=== PATIENT | male | born 1955 | race Caucasian/White ===

== ENCOUNTER 2018-11-12 01:50 | Emergency (ER) | payer OTHER ==
[2018-11-12 02:06] VITALS: BP 146/83; PULSE 74; O2SAT 98
[2018-11-12 02:32] LABS: Amphetamine,Urine NEGATIVE (NEGATIVE); Barbiturate,Urine NEGATIVE (NEGATIVE); Benzodiazepine,Urine NEGATIVE (NEGATIVE); Cocaine,Urine NEGATIVE (NEGATIVE); Methadone,Urine NEGATIVE (NEGATIVE); Opiate,Urine NEGATIVE (NEGATIVE); PCP,Urine NEGATIVE (NEGATIVE); THC,Urine NEGATIVE (NEGATIVE)
--- NOTE | 2018-11-12 02:46 | ERPHSYRPT ---
- History of Present Illness Source: patient, police Exam Limitations: no limitations, clinical condition Patient Subjective Stated Complaint: law enforcement states they need chemical test and clearance for [facility] Triage Nursing Assessment: pt awake and alert. answers questions. pt ambulatory with slightly unsteady gait noted. respirations nonlabored with lungs cta. Physician History: Pt is a 63 y/o male that presented to the ER by police, for medical clearance. Pt was seen by police, driving his mopad and swirling all over the road. He was stopped and was found to be intoxicated. Per pt he had 7-8 beers today. Pt was brought to the ER for medical clearance prior to [facility]. Timing/Duration: today Associated Symptoms: denies symptoms Allergies/Adverse Reactions: No Known Drug Allergies Allergy (Unverified 09/23/15 12:14) Home Medications: Aspirin 81 gm Chew [Baby Aspirin 81 mg Chew] 81 mg PO DAILY 09/23/15 [ History] Cilostazol [Pletal] 0 mg PO DAILY 09/23/15 [History] Hydrocodone Bit/Acetaminophen [Hydrocodon-Acetaminophn 10-325] 1 each PO QID [History] Hx Tetanus, Diphtheria Vaccination/Date Given: No Hx Influenza Vaccination/Date Given: No Hx Pneumococcal Vaccination/Date Given: No Immunizations Up to Date: No - Review of Systems Constitutional: No Fever, No Chills Eyes: No Symptoms Ears, Nose, & Throat: No Symptoms Respiratory: No Cough, No Dyspnea Cardiac: No Chest Pain, No Edema, No Syncope Abdominal/Gastrointestinal: No Abdominal Pain, No Nausea, No Vomiting, No Diarrhea Genitourinary Symptoms: No Dysuria Musculoskeletal: No Back Pain, No Neck Pain Neurological: No Dizziness, No Focal Weakness, No Sensory Changes - Past Medical History Pertinent Past Medical History: Yes Neurological History: No Pertinent History ENT History: No Pertinent History Cardiac History: Peripheral Vascular Disease Respiratory History: No Pertinent History, COPD Endocrine Medical History: No Pertinent History Musculoskeletal History: Other GI Medical History: No Pertinent History History: No Pertinent History Psycho-Social History: No Pertinent History Male Reproductive Disorders: No Pertinent History Other Medical History: PT. IS A SMOKER. chronic pain - Past Surgical History Past Surgical History: Yes Neuro Surgical History: No Pertinent History Cardiac: No Pertinent History Respiratory: No Pertinent History Gastrointestinal: Hernia Repair Genitourinary: No Pertinent History Musculoskeletal: Amputation Male Surgical History: No Pertinent History Other Surgical History: left index finger amputation 1997 - Social History Smoking Status: Current every day smoker How long have you smoked: 40years Exposure to second hand smoke: Yes Drug Use: none Patient Lives Alone: Yes - Nursing Vital Signs Nursing Vital Signs: Initial Vital Signs Temperature 97.8 F 11/12/18 01:52 Pulse Rate 74 11/12/18 01:52 Respiratory Rate 18 11/12/18 01:52 Blood Pressure 146/83 11/12/18 01:52 O2 Sat by Pulse Oximetry 98 11/12/18 01:52 Pain Scale Pain Intensity 5 - Physical Exam General Appearance: no apparent distress, alert Eye Exam: PERRL/EOMI, eyes nml inspection Ears, Nose, Throat Exam: normal ENT inspection, TMs normal, pharynx normal, moist mucous membranes Neck Exam: normal inspection, non-tender, supple, full range of motion Respiratory Exam: normal breath sounds, lungs clear, No respiratory distress Cardiovascular Exam: regular rate/rhythm, normal heart sounds, normal peripheral pulses Gastrointestinal/Abdomen Exam: soft, normal bowel sounds, No tenderness, No mass Extremity Exam: normal inspection, normal range of motion, pelvis stable Neurologic Exam: alert, oriented x 3, cooperative, normal mood/affect, nml cerebellar function, nml station & gait, sensation nml, No motor deficits SpO2: 98 - Course Nursing assessment & vital signs reviewed: Yes Ordered Tests: Active Orders 24 hr Category Date Time Status Alcohol [ETHYL ALCOHOL] Stat Lab 11/12/18 02:10 Completed Urine Triage Profile Stat Lab 11/12/18 02:14 Completed Lab/Rad Data: Laboratory Results 11/12/18 11/12/18 Range/Units 02:14 02:10 Urine Opiates Level NEGATIVE (NEGATIVE) Ur Methadone NEGATIVE (NEGATIVE) Urine Barbiturates NEGATIVE (NEGATIVE) Ur Phencyclidine (PCP) NEGATIVE (NEGATIVE) Urine Amphetamine NEGATIVE (NEGATIVE) U Benzodiazepine Level NEGATIVE (NEGATIVE) Urine Cocaine NEGATIVE (NEGATIVE) Urine Marijuana (THC) NEGATIVE (NEGATIVE) Ethyl Alcohol 194 H (0-10) mg/dL - Progress Progress: unchanged Progress Note: 11/12/18 02:46 Pt had UDS that was negative for recreational drugs. Hia ETOH level was elevated. Pt was medically cleared to [facility]. - Departure Time of Disposition: 02:47 Departure Disposition: Intermediate/[facility] Clinical Impression: Alcohol intoxication Condition: Stable Critical Care Time: No Referrals: ODETTE DOVE [Primary Care Provider] - Additional Instructions: Pt should f/u with his PCP with release from [facility].
== END 2018-11-12 02:58 | disposition home or self-care (01) ==
LOC: ED 01:50
DX: M72.2 Plantar fascial fibromatosis (principal); Z02.89 Encounter for other administrative examinations; J44.9 Chronic obstructive pulmonary disease, unspecified; I73.9 Peripheral vascular disease, unspecified; Z79.899 Other long term (current) drug therapy
CPT/HCPCS: 36415; 80307; 99283; G0480

== ENCOUNTER 2022-05-08 19:23 | Emergency (ER) | payer MEDICARE ==
--- NOTE | 2022-05-08 19:35 | ERPHSYRPT ---
- History of Present Illness Time Seen by Provider: 05/08/22 19:35 Source: patient Exam Limitations: no limitations Physician History: This is a right handed 66-year-old white male who presents with a right index finger flap laceration that occurred prior to arrival when trying to cut wood. Patient's tetanus status is not up-to-date. Patient has hydrocodone at home that he uses chronically. Patient took 1 prior to arrival to emergency department. Patient has a history of arthritis as well as history of lung cancer. Occurred: just prior to arrival Method of Injury: other (Cutting wood) Quality: throbbing Severity of Pain-Max: mild (To moderate) Severity of Pain-Current: mild (To moderate) Extremities Pain Location: 2nd finger: right Modifying Factors: Improves With: nothing Associated Symptoms: none Allergies/Adverse Reactions: No Known Drug Allergies Allergy (Verified 05/08/22 19:29) Home Medications: Aspirin 81 gm Chew [Baby Aspirin 81 mg Chew] 81 mg PO DAILY 09/23/15 [History] Cilostazol [Pletal] 0 mg PO DAILY 09/23/15 [History] Hydrocodone/Acetaminophen [Hydrocodon-Acetaminophn 10-325] 1 each PO QID 09/23/15 [History] Hx Tetanus, Diphtheria Vaccination/Date Given: No Hx Influenza Vaccination/Date Given: No Hx Pneumococcal Vaccination/Date Given: No Travel Risk - International Travel Have you traveled outside of the country in past 3 weeks: No - Coronavirus Screening Are you exhibiting any of the following symptoms?: No Close contact with a COVID-19 positive Pt in past 14-21 Days: No - Review of Systems Constitutional: No Symptoms Eyes: No Symptoms Ears, Nose, & Throat: No Symptoms Respiratory: No Symptoms Cardiac: No Symptoms Abdominal/Gastrointestinal: No Symptoms Genitourinary Symptoms: No Symptoms Musculoskeletal: Injury (Right index finger) Skin: Other (Laceration fat pad distal right second digittip of finger) Neurological: No Symptoms Psychological: No Symptoms Endocrine: No Symptoms Hematologic/Lymphatic: No Symptoms Immunological/Allergic: No Symptoms All Other Systems: Reviewed and Negative - Past Medical History Pertinent Past Medical History: Yes Neurological History: No Pertinent History ENT History: No Pertinent History Cardiac History: Peripheral Vascular Disease Respiratory History: Lung Cancer Endocrine Medical History: No Pertinent History Musculoskeletal History: Fractures GI Medical History: No Pertinent History History: No Pertinent History Psycho-Social History: No Pertinent History Male Reproductive Disorders: No Pertinent History Other Medical History: Arthritis, Thyroid Disease, currently undergoing Immunotherapy for lung cancer - Past Surgical History Past Surgical History: Yes Neuro Surgical History: No Pertinent History Cardiac: No Pertinent History Respiratory: No Pertinent History Gastrointestinal: Hernia Repair Genitourinary: No Pertinent History Musculoskeletal: Amputation Male Surgical History: No Pertinent History Other Surgical History: left index finger amputation 1997 - Social History Smoking Status: Current every day smoker How long have you smoked: 40years Exposure to second hand smoke: Yes Drug Use: none Patient Lives Alone: Yes - Nursing Vital Signs Nursing Vital Signs: Initial Vital Signs Temperature 98.2 F 05/08/22 19:37 Pulse Rate 74 05/08/22 19:37 Respiratory Rate 18 05/08/22 19:37 Blood Pressure 129/59 05/08/22 19:37 O2 Sat by Pulse Oximetry 96 05/08/22 19:37 Pain Scale Pain Intensity 8 - Physical Exam General Appearance: no apparent distress, alert Eyes, Ears, Nose, Throat Exam: normal ENT inspection, moist mucous membranes Neck Exam: normal inspection, non-tender, supple, full range of motion Cardiovascular/Respiratory Exam: chest non-tender, no respiratory distress Abdominal Exam: non-tender Back Exam: normal inspection, normal range of motion, No CVA tenderness, No vertebral tenderness Shoulder Exam: normal inspection, non-tender, no evidence of injury, normal ROM Elbow/Forearm Exam: normal inspection, non-tender, no evidence of injury, normal ROM Wrist Exam: normal inspection, non-tender, no evidence of injury, normal ROM Hand Exam: normal ROM, laceration (Skin flap laceration right index finger palmar aspect hip with some maceration. No bony involvement. Patient is neurovascularly intact. No foreign body and no active bleeding present), soft tissue tenderness (Distal tip right index finger palmar aspect fat pad) Neuro/Tendon Exam: normal sensation, normal motor functions, normal tendon functions, responds to pain, no evidence tendon injury Mental Status Exam: alert, oriented x 3, cooperative Skin Exam: normal color, warm, dry, laceration (See above right second digit) SpO2 Interpretation: normal O2 Delivery: Room Air Procedures - Laceration/Wound Repair Right Distal Volar Finger Time of Procedure: 20:00 Wound Location: Right, hand (Second digit tip of finger palmar aspect) Wound Length (cm): 1 Wound's Depth, Shape: superficial, flap, stellate Wound Explored: clean (No foreign body noted. Examination was performed in a bloodless field to the base) Irrigated: Yes Hibiclens Prep: Yes Anesthesia: 1% Lidocaine Volume Anesthetic (ccs): 2 Wound Repaired With: sutures Suture Size/Type: 4-0, prolene Number of Sutures: 4 (Sutures were placed to tack the flap down) Layer Closure?: No Sterile Dressing Applied?: Yes Progress: 05/08/22 20:15 Bacitracin ointment, nonstick gauze and pressure dressing applied. Ordered Tests: Medication Summary Discontinued Medications Generic Name Dose Route Start Last Admin Trade Name Freq PRN Reason Stop Dose Admin Bacitracin Zinc Confirm 05/08/22 20:06 Bacitracin Packet 1 Each Pckt Administered 05/08/22 20:07 Dose 1 each .ROUTE .STK-MED ONE Cephalexin HCl 500 mg 05/08/22 20:06 Cephalexin Mh500 Mg Capsule PO 05/08/22 20:07 STAT ONE - Progress Progress: improved Progress Note: 05/08/22 20:16 There was no bony involvement. I did not order an x-ray because I do not feel it is necessary. The goal is merely to tack the flap down not to make a watertight closure. This was discussed several times with the patient and his spouse. They agree with this plan. Counseled pt/family regarding: diagnosis, need for follow-up - Departure Departure Disposition: Home Clinical Impression: Finger laceration Condition: Stable Critical Care Time: No Referrals: ODETTE DOVE [Primary Care Provider] - Follow up/PCP as directed Additional Instructions: Keep current bandage in place until the morning of 05/10/2022. At that time, you may remove the dressing and wash the site with soap and water. Make sure you rinse well, dry the area well then apply antibiotic ointment of choice daily thereafter. Each time, cover the repeat parasite with a thin layer of antibiotic ointment and nonstick gauze. Suture removal in 10 days. Take your antibiotic as prescribed. Continue your own hydrocodone at home. Prescriptions: Cephalexin Mh 500 mg [Keflex 500 mg] 500 mg PO TID #21 cap
[2022-05-08 19:38] VITALS: BP 129/59; PULSE 74; O2SAT 96
[2022-05-08] MEDS ORDERED: BACIGUENT PACKET ONE (20:06)
[2022-05-08] MEDS ORDERED: KEFLEX 500 MG PO ONE (20:06)
[2022-05-08] MEDS ORDERED: Adacel Vial IM ONE ×2 (20:09→20:13)
[2022-05-08] MEDS ORDERED: KEFLEX 500 MG ONE (20:14)
== END 2022-05-08 20:33 | disposition home or self-care (01) ==
LOC: ED 19:23
DX: S61.210A Laceration without foreign body of right index finger without damage to nail, initial encounter (principal); W45.8XXA Other foreign body or object entering through skin, initial encounter; Z72.0 Tobacco use; Z79.891 Long term (current) use of opiate analgesic; Z79.899 Other long term (current) drug therapy
CPT/HCPCS: 12001; 90471; 90715; 99282; A9270-GY

== ENCOUNTER 2023-01-15 08:45 | Emergency (ER) | payer MEDICARE ==
[2023-01-15] MEDS ORDERED: Sodium Chloride 0.9% 1000 ML 1,000 ML IV STA (09:11)
[2023-01-15] MEDS ORDERED: PROTONIX 40 MG IV IV ONE ×2 (09:11→09:33)
[2023-01-15] MEDS ORDERED: Zofran 4 MG/2 ML VIAL IV ONE (09:11)
[2023-01-15 09:16] VITALS: PULSE 66
[2023-01-15] MEDS ORDERED: Zofran 4 MG/2 ML VIAL ONE (09:33)
[2023-01-15] MEDS ORDERED: Sodium Chloride 0.9% 1000 ML 1,000 ML ONE (09:34)
[2023-01-15 09:51] LABS: Absolute Neutrophil Ct (ANC) 6.53 x10^3/uL (1.4-6.9); BASOPHIL % 0.1 % (0.0-0.4); Basophil (Absolute #) 0.01 x10^3/uL (0-0.4); Eosinophil % 0.3 % (0.00-5.0); Eosinophil (Absolute #) 0.02 x10^3/uL (0-0.5); Hematocrit 37.7 % (42-50); Hemoglobin 11.7 g/dL (12.5-18.0); IMMATURE GRAN # 0.04 x10^3u/L (0.00-0.03); IMMATURE GRAN % 0.5 % (0.00-0.4); Lymphocyte (Absolute #) 0.22 x10^3/uL (1.0-4.6); Mean Corpuscular Hemoglobin 25.4 pg (26-32); Mean Platelet Volume 8.5 fL (7.5-11.0); Monocyte (Absolute #) 0.58 x10^3/uL (0.0-1.3); Monocytes % 7.8 % (0.0-12.0); Neutrophil % 88.3 % (36.0-66.0); Platelet Count 425 x10^3/uL (150-450); Red Cell Distribution Width 17.3 % (11.5-14.0); White Blood Count 7.4 x10^3/uL (4.0-10.5)
[2023-01-15 10:05] LABS: ALBUMIN 3.4 g/dL (3.5-5.0); ALKALINE PHOSPHATASE 70 U/L (38-126); ANION GAP 12.5 MEQ/L (5-15); BLOOD UREA NITROGEN 14 mg/dL (9-20); CHLORIDE 98 mmol/L (98-107); Carbon Dioxide 29 mmol/L (22-30); Creatinine 1 0.71 mg/dL (0.66-1.25); EST GLOMERULAR FILTRATION RATE > 60.0 ML/MIN; Glucose 121 mg/dL (74-106); LIPASE 28 U/L (23-300); Potassium 3.5 mmol/L (3.5-5.1); SGOT/AST 31 U/L (17-59); SGPT/ALT 35 U/L (0-50); SODIUM 136 mmol/L (137-145); Total Protein 6.6 g/dL (6.3-8.2)
[2023-01-15 11:58] LABS: Slide Review 1 YES
[2023-01-15 12:30] VITALS: BP 168/91; O2SAT 97
--- NOTE | 2023-01-15 12:43 | XRAY ---
CLINICAL HISTORY:Upper abdominal pain/vomiting. History of left lung small cell carcinoma; COMPARISON:None; TECHNIQUES:CT scan of the abdomen and pelvis was performed with IV contrast. 80 ml of Inj. Isovue (370 mg/ 100ml) was administered as an intravenous contrast agent. Bowel loops are not opacified by prior administration of oral contrast. Coronal and sagittal reconstructive images were also obtained; FINDINGS: Moderate hydropneumothorax is seen in the left hemithorax. Shift of mediastinum is seen towards the left side. Interlobular septal thickening is seen in the visualized part of left lower lobe. Small ill-defined nodular density is seen in the left lower lobe in the para mediastinal location. Multiple patchy ground glass infiltrates are seen in the visualized lower lobe of the right lung, along with nodular septal thickening. Minimal pericardial effusio is seen. Paucity of intra-abdominal fat limits intrinsic soft tissue contrast. The liver is normal in size. No focal or diffuse parenchymal abnormality. The portal vein, intrahepatic biliary radicals and the bile ducts are normal. The spleen, pancreas, adrenal glands are unremarkable. The kidneys are unremarkable. They are normal in size and shape. No calculi or hydronephrosis. The gallbladder is normal. No pericholecystic collection or radio dense calculi in the gall bladder. Colonic diverticulosis is seen predominantly involving the sigmoid colon. No evidence of diverticulitis is noted. The ascending colon, the transverse colon, the descending colon, visualized small bowel loops are unremarkable. There is no evidence of significant enlargement of the mesenteric or retroperitoneal lymph nodes. Atherosclerotic vascular calcifications are noted severely involving the iliac vessels. The urinary bladder is unremarkable. The rectosigmoid colon is unremarkable. The prostate is unremarkable. The pelvic vasculature is unremarkable. No evidence of pelvic lymphadenopathy. The osseous structures in the pelvis, lower rib cage and lumbar spine show No lytic or sclerotic bone lesions. Fracture is seen in the pars-intraarticular of L5 on right side with no evidence of spondylolisthesis. IMPRESSION: 1. Moderate hydropneumothorax is seen in the left hemithorax with shift of mediastinum towards the left side. 2. Interlobular septal thickening seen in the visualized part of the left lower lobe. 3. Small ill-defined nodular density is seen in the left lower lobe in the para-mediastinal location. 4. Multiple patchy infiltrates are seen in the visualized lower lobe of the right lung, clinical correlation and workup suggested. 5. Minimal pericardial effusion. 6. Suggested contrast-enhanced CT Chest for further evaluation. 7. Paucity of intra abdominal fat limits intrinsic soft tissue contrast. 8. Colonic diverticulosis noted, bowel gas pattern is non-specific and non-obstructive. The [facility] office was called at [phone] at 11:32 AM GRAB OPERATOR, 01/15/2023 and the results are verbally communicated with Corey Marks. Electronically Signed by: Celina Powell MD. (01/15/2023 11:38:15 GRAB OPERATOR)
--- NOTE | 2023-01-15 13:19 | ERPHSYRPT ---
- History of Present Illness Time Seen by Provider: 01/15/23 09:11 Historian: patient Exam Limitations: no limitations Patient Subjective Stated Complaint: pt has been vomiting since last week and he went to [facility] yesterday and they just gave him some fluids, pt is stage 4 lung cancer and he is taking chemo Triage Nursing Assessment: Pt brought to the ER by his friend, hypertensive, denies any new pain from being sick but does have chronic pain, pt unable to keep anything down, for the pas 1.5 weeks, pulses normal, weak, lethargic, A&O X3 Physician History: 67 years old male with history of stage IV lung cancer finished radiation therapy, chemo and currently on immunotherapy, had pericardial effusion and hydr othorax needing drainage almost [address] [facility] by Dr. Domingo presented in the ER with worsening nausea vomiting and epigastric discomfort. Patient reports he is not able to hold much down. He was seen yesterday at cancer [facility] and was given fluids. Denies any fever or chills. Patient denies having any increased shortness of breath than what he has at his baseline. Does report having some epigastric discomfort and pain and chronic back pain which is worse than usual as well. Patient feels weak fatigued tired and dehydrated with no energy. Timing/Duration: week(s), gradual onset, worse Activities at Onset: rest Quality: aching Abdominal Pain Onset Location: generalized abdomen Pain Radiation: no radiation Severity of Pain-Max: moderate Severity of Pain-Current: mild Modifying Factors: Improves With: nothing Associated Symptoms: back, nausea, vomiting Previous symptoms: same symptoms as today Allergies/Adverse Reactions: No Known Drug Allergies Allergy (Verified 01/15/23 09:16) Home Medications: Aspirin 81 gm Chew [Baby Aspirin 81 mg Chew] 81 mg PO DAILY 09/23/15 [History] Cilostazol [Pletal] 0 mg PO DAILY 09/23/15 [History] Hydrocodone/Acetaminophen [Hydrocodon-Acetaminophn 10-325] 1 each PO QID 09/23/15 [History] Hx Tetanus, Diphtheria Vaccination/Date Given: No Hx Influenza Vaccination/Date Given: No Hx Pneumococcal Vaccination/Date Given: No Travel Risk - International Travel Have you traveled outside of the country in past 3 weeks: No - Coronavirus Screening Are you exhibiting any of the following symptoms?: No Close contact with a COVID-19 positive Pt in past 14-21 Days: No - Vaccine Status Have you recieved a Covid-19 vaccination: Yes Paralegal Secretary: Pfizer - Vaccination Dates Date of 2cond Vaccination (if applicable): 2020 - Review of Systems Constitutional: Fatigue, Weakness Eyes: No Symptoms Ears, Nose, & Throat: No Symptoms Respiratory: Dyspnea Cardiac: No Symptoms Abdominal/Gastrointestinal: Abdominal Pain, Nausea, Vomiting Genitourinary Symptoms: No Symptoms Musculoskeletal: Back Pain Skin: No Symptoms Neurological: No Symptoms Psychological: No Symptoms Endocrine: No Symptoms Hematologic/Lymphatic: No Symptoms - Past Medical History Pertinent Past Medical History: Yes Neurological History: No Pertinent History ENT History: No Pertinent History Cardiac History: Peripheral Vascular Disease Respiratory History: Lung Cancer Endocrine Medical History: No Pertinent History Musculoskeletal History: Fractures GI Medical History: No Pertinent History History: No Pertinent History Psycho-Social History: No Pertinent History Male Reproductive Disorders: No Pertinent History Other Medical History: Arthritis, Thyroid Disease, currently undergoing Immun otherapy for lung cancer - Past Surgical History Past Surgical History: Yes Neuro Surgical History: No Pertinent History Cardiac: No Pertinent History Respiratory: No Pertinent History Gastrointestinal: Hernia Repair Genitourinary: No Pertinent History Musculoskeletal: Amputation Male Surgical History: No Pertinent History Other Surgical History: left index finger amputation 1997 - Social History Smoking Status: Current every day smoker How long have you smoked: 40years Exposure to second hand smoke: Yes Drug Use: none Patient Lives Alone: No - Nursing Vital Signs Nursing Vital Signs: Initial Vital Signs Temperature 97.6 F 01/15/23 08:59 Pulse Rate 66 01/15/23 08:59 Blood Pressure 150/92 01/15/23 08:59 O2 Sat by Pulse Oximetry 96 01/15/23 08:59 Pain Scale Pain Intensity 0 - Physical Exam General Appearance: no apparent distress, alert Eye Exam: PERRL/EOMI, eyes nml inspection Ears, Nose, Throat Exam: normal ENT inspection, pharynx normal Neck Exam: normal inspection, non-tender, supple, full range of motion Respiratory Exam: diminished breath sounds, crackles/rales, wheezing Cardiovascular Exam: regular rate/rhythm, normal heart sounds Gastrointestinal/Abdomen Exam: soft, normal bowel sounds, tenderness (Mild tenderness in epigastric area with no guarding or rebound) Extremity Exam: normal inspection, normal range of motion Neurologic Exam: alert, oriented x 3, cooperative Skin Exam: normal color SpO2 Interpretation: normal SpO2: 97 O2 Delivery: Room Air Ordered Tests: Active Orders 24 hr Category Date Time Status IV Insertion STAT Care 01/15/23 09:11 Active NPO (ED) STAT Care 01/15/23 09:11 Active ABDOMEN AND PELVIS W CONTRAST [CT] Stat Exams 01/15/23 09:11 Completed CBC W DIFF Stat Lab 01/15/23 09:11 Completed CMP Stat Lab 01/15/23 09:45 Completed LIPASE Stat Lab 01/15/23 09:45 Completed Lactic Acid Stat Lab 01/15/23 09:11 Completed TROPONIN Q4H Lab 01/15/23 09:45 Completed TROPONIN Q4H Lab 01/15/23 13:15 Ordered TROPONIN Q4H Lab 01/15/23 17:15 Ordered UA W/RFX UR CULTURE Stat Lab 01/15/23 12:29 Ordered Medication Summary Discontinued Medications Generic Name Dose Route Start Last Admin Trade Name Freq PRN Reason Stop Dose Admin Sodium Chloride 1,000 mls @ 999 mls/hr 01/15/23 09:11 01/15/23 11:10 Sodium Chloride 0.9% 1000 Ml IV 01/15/23 10:11 Infused .Q1H1M STA Infusion Sodium Chloride Confirm 01/15/23 09:34 Sodium Chloride 0.9% 1000 Ml Administered 01/15/23 09:35 Dose 1,000 mls @ ud .ROUTE .STK-MED ONE Ondansetron HCl 4 mg 01/15/23 09:11 01/15/23 09:36 Ondansetron Hcl 4 Mg/2 Ml Vial IV 01/15/23 09:12 4 mg STAT ONE Administration Ondansetron HCl Confirm 01/15/23 09:33 Ondansetron Hcl 4 Mg/2 Ml Vial Administered 01/15/23 09:34 Dose 4 mg .ROUTE .STK-MED ONE Pantoprazole Sodium 40 mg 01/15/23 09:11 01/15/23 09:37 Pantoprazole 40 Mg Vial IV 01/15/23 09:12 40 mg STAT ONE Administration Pantoprazole Sodium Confirm 01/15/23 09:33 Pantoprazole 40 Mg Vial Administered 01/15/23 09:34 Dose 40 mg IV .STK-MED ONE Lab/Rad Data: Laboratory Result Diagrams 01/15/23 09:11 01/15/23 09:45 Laboratory Results 01/15/23 01/15/23 01/15/23 Range/Units 09:45 09:45 09:11 WBC (4.0-10.5) x10^3/uL RBC (4.1-5.6) x10^6/uL Hgb (12.5-18.0) g/dL Hct (42-50) % MCV (78-100) fL MCH (26-32) pg MCHC (32-36) g/dL RDW (11.5-14.0) % Plt Count (150-450) x10^3/uL MPV (7.5-11.0) fL Gran % (36.0-66.0) % Immature Gran % (Auto) (0.00-0.4) % Nucleat RBC Rel Count (0.00-0.1) % Eos # (Auto) (0-0.5) x10^3/uL Immature Gran # (Auto) (0.00-0.03) x10^3u/L Absolute Lymphs (auto) (1.0-4.6) x10^3/uL Absolute Monos (auto) (0.0-1.3) x10^3/uL Absolute Nucleated RBC (0.00-0.01) x10^3u/L Lymphocytes % (24.0-44.0) % Monocytes % (0.0-12.0) % Eosinophils % (0.00-5.0) % Basophils % (0.0-0.4) % Absolute Granulocytes (1.4-6.9) x10^3/uL Basophils # (0-0.4) x10^3/uL Sodium 136 L (137-145) mmol/L Potassium 3.5 (3.5-5.1) mmol/L Chloride 98 (98-107) mmol/L Carbon Dioxide 29 (22-30) mmol/L Anion Gap 12.5 (5-15) MEQ/L BUN 14 (9-20) mg/dL Creatinine 0.71 (0.66-1.25) mg/dL Estimated GFR > 60.0 ML/MIN Glucose 121 H (74-106) mg/dL Lactic Acid 0.9 (0.4-2.0) Calcium 9.0 (8.4-10.2) mg/dL Total Bilirubin 0.60 (0.2-1.3) mg/dL AST 31 (17-59) U/L ALT 35 (0-50) U/L Alkaline Phosphatase 70 (38-126) U/L Troponin I < 0.012 (0.000-0.034) ng/mL Serum Total Protein 6.6 (6.3-8.2) g/dL Albumin 3.4 L (3.5-5.0) g/dL Lipase 28 (23-300) U/L Slides for Path Review 01/15/23 Range/Units 09:11 WBC 7.4 (4.0-10.5) x10^3/uL RBC 4.60 (4.1-5.6) x10^6/uL Hgb 11.7 L (12.5-18.0) g/dL Hct 37.7 L (42-50) % MCV 82.0 (78-100) fL MCH 25.4 L (26-32) pg MCHC 31.0 L (32-36) g/dL RDW 17.3 H (11.5-14.0) % Plt Count 425 (150-450) x10^3/uL MPV 8.5 (7.5-11.0) fL Gran % 88.3 H (36.0-66.0) % Immature Gran % (Auto) 0.5 H (0.00-0.4) % Nucleat RBC Rel Count 0.0 (0.00-0.1) % Eos # (Auto) 0.02 (0-0.5) x10^3/uL Immature Gran # (Auto) 0.04 H (0.00-0.03) x10^3u/L Absolute Lymphs (auto) 0.22 L (1.0-4.6) x10^3/uL Absolute Monos (auto) 0.58 (0.0-1.3) x10^3/uL Absolute Nucleated RBC 0.00 (0.00-0.01) x10^3u/L Lymphocytes % 3.0 L (24.0-44.0) % Monocytes % 7.8 (0.0-12.0) % Eosinophils % 0.3 (0.00-5.0) % Basophils % 0.1 (0.0-0.4) % Absolute Granulocytes 6.53 (1.4-6.9) x10^3/uL Basophils # 0.01 (0-0.4) x10^3/uL Sodium (137-145) mmol/L Potassium (3.5-5.1) mmol/L Chloride (98-107) mmol/L Carbon Dioxide (22-30) mmol/L Anion Gap (5-15) MEQ/L BUN (9-20) mg/dL Creatinine (0.66-1.25) mg/dL Estimated GFR ML/MIN Glucose (74-106) mg/dL Lactic Acid (0.4-2.0) Calcium (8.4-10.2) mg/dL Total Bilirubin (0.2-1.3) mg/dL AST (17-59) U/L ALT (0-50) U/L Alkaline Phosphatase (38-126) U/L Troponin I (0.000-0.034) ng/mL Serum Total Protein (6.3-8.2) g/dL Albumin (3.5-5.0) g/dL Lipase (23-300) U/L Slides for Path Review YES - Progress Progress: improved, re-examined Progress Note: 01/15/23 13:12 67 years old male with stage IV lung cancer, had radiation and currently on immunotherapy at [facility], recent hydrothorax and pericardial effusion needing drainage by Dr. Domingo is evaluated for 3 weeks of off-and-on nausea vomiting, decreased oral intake and feeling of weak fatigued tired and dehydrated. Denies having increased shortness of breath but what he has at baseline. Given fluids and Protonix along with Zofran, on reevaluation feeling better. Work-up showed normal white count, fairly unremarkable chemistries. CT showed fairly large hydropneumothorax on the left with shift of mediastinum and questionable infiltrative process in the right lung. I have discussed with Dr. Carrion who has seen patient recently and knows him very well, reviewed work-up including CT as well. 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 He does not want to have him a chest tube or any kind of intervention at this point. Also recommended that if has normal white count and does not seem septic, no need for antibiotics. Only if hydrothorax become infected will need to antibiotics. I do not think patient is septic, not in any distress and breathing is not worse than usual. Patient has a very poor prognosis per Dr. Carrion, recommended follow-up with primary care and oncology. Patient has Zofran at home which she does not seem working, I will give him Phenergan and put him on Protonix. I have discussed with patient in detail about the lab work, CT findings and recommendations of cardiothoracic surgery which she understands and agrees with outpatient follow-up. Discussed signs symptoms of worsening needing return to ER which she seems understanding. Counseled pt/family regarding: lab results, diagnosis, need for follow-up, rad results, smoking cessation Medical Desision Making - Independent Historian Additional History obtained from: Relative/friend - External Record(s) Reviewed Records reviewed as a part of evaluation & management: Clinic - Discussion of managment Care discussed with:: specialist (Dr. Carrion cardiothoracic surgery [facility] at 1310) Reviewed:: Test results Agreed on:: Treatment plan, need for follow-up - Diagnostic Testing Diagnostic test were ordered, analyzed, and reviewed by me: Yes Radiological Interpretation: Reviewed by me, Teleradiologist Report - Risk of complications The pt has a high risk of morbidity or mortality based on: Drug therapy requiring intensive monitoring for toxicity - Departure Departure Disposition: Home Clinical Impression: Hydropneumothorax, Pericardial effusion, Lung cancer, Nausea & vomiting, Upper abdominal pain Condition: Stable Critical Care Time: No Referrals: ODETTE DOVE [Primary Care Provider] - Follow up with PCP 1 day WENDIE WALTERS [COURTESY STAFF] - Follow up/PCP as directed (Tomorrow for reevaluation) Instructions: Nausea and Vomiting, Adult (DC) Additional Instructions: Drink plenty of fluids. Take Tylenol/Zofran as needed. Continue with Protonix. Follow-up with primary care and oncology for further evaluation. Return to ER if having difficulty breathing, fever chills, worsening abdominal pain/intractable vomiting etc. Prescriptions: Promethazine HCl 25 mg [Phenergan 25 mg] 25 mg PO Q8H PRN PRN 5 Days #10 tablet PRN Reason: Vomiting PANTOPRAZOLE 40 mg Tablet [Protonix 40MG Tablet] 40 mg PO QAM #30 tab
[2023-01-15 13:29] LABS: Appearance Clear (Clear); Bacteria None Seen /HPF (None Seen); Bilirubin Negative (Negative); Blood Negative (Negative); Epithelial Cells None Seen /HPF (None Seen); Glucose, Urine Negative (Negative); Hyaline Casts NONE SEEN /LPF (0-2); Ketones Negative (Negative); Leukocyte Esterase Negative (Negative); Nitrite Negative (Negative); Ph 6.5 (4.6-8.0); Protein,Urine Dip Negative (Negative); RBC 0-2 /HPF (0-5); Specific Gravity >=1.030 (1.005-1.030); WBC 0-2 /HPF (0-5)
[2023-01-15 13:31] LABS: ADD URINE CULTURE? NO (NO)
== END 2023-01-15 13:36 | disposition home or self-care (01) ==
LOC: ED 08:45
DX: R11.2 Nausea with vomiting, unspecified (principal); R10.10 Upper abdominal pain, unspecified; C34.90 Malignant neoplasm of unspecified part of unspecified bronchus or lung; I31.39 Other pericardial effusion (noninflammatory); J94.8 Other specified pleural conditions; Z79.899 Other long term (current) drug therapy; Z20.828 Contact with and (suspected) exposure to other viral communicable diseases; Z72.0 Tobacco use
CPT/HCPCS: 36000; 36415; 74177; 80053; 81001; 83605; 83690; 84484; 85025; 96360; 96374; 96375; 99284; J1642; J2405